=== PATIENT | male | born 1980 | race Two or more races ===

== ENCOUNTER → 2025-04-29 | Outpatient (CLI) | payer OTHER, SELFPAY ==
--- NOTE | 2025-04-29 | XR_ITS ---
EXAMINATION: Cervical spine, 5 views Technique: Cervical spine AP, AP odontoid, lateral, bilateral obliques, 5 views Exam date and time: April 29, 2025 1139 hours INDICATIONS: Neck pain beginning 2 years ago FINDINGS: Adequate alignment cervical vertebral bodies No cervical fracture. Intact odontoid Early degenerative disc disease C5-C6 IMPRESSION: Early degenerative disc disease C5-C6
--- NOTE | 2025-04-29 | XR_ITS ---
Examination: Shoulder bilateral, 6 views Technique: Shoulder AP internal rotation, AP external rotation, Y view each shoulder 6 views Exam date and time :April 29, 2025 1139 hours INDICATIONS: Bilateral shoulder pain beginning 2 years ago, mass on the right shoulder. FINDINGS: Bilateral early osteoarthritis patellofemoral joints No shoulder fractures or dislocation No calcific tendinitis Mild bilateral osteoarthritis acromioclavicular joints IMPRESSION: Bilateral mild shoulder osteoarthritis
--- NOTE | 2025-04-29 | XR_ITS ---
Examination: Lumbar spine, 5 views Technique: Lumbar spine AP, lateral, coned lateral lower lumbar spine, bilateral obliques 5 views Exam date and time: April 29, 2025 1139 hours Comparison June 22, 2014 INDICATIONS: Low back pain several years. FINDINGS: Short angle lower lumbar dextroscoliosis 12 degrees Diffuse [id number] facet arthropathy Moderate to advanced degenerative disc disease lower 3 lumbar levels No spondylolisthesis IMPRESSION: Moderate to advanced degenerative disc disease lower 3 lumbar levels with significant spinal stenosis
== END | disposition home or self-care (01) ==
PROVIDERS: PCP Family Medicine; Referring Provider Family Medicine; Visit Provider Family Medicine
DX: M19.012 Primary osteoarthritis, left shoulder (principal); M19.011 Primary osteoarthritis, right shoulder; M50.322 Other cervical disc degeneration at C5-C6 level; M51.360 Other intervertebral disc degeneration, lumbar region with discogenic back pain only; M48.061 Spinal stenosis, lumbar region without neurogenic claudication
CPT/HCPCS: 72050; 72110; 73030